=== PATIENT | female | born 2000 | race Two or more races ===

== ENCOUNTER → 2024-03-12 | Outpatient (REF) | payer OTHER | LOC: M PLALAB 09:03 | PROVIDERS: ATTEND Obstetrics & Gynecology | DX: Z34.91 Encounter for supervision of normal pregnancy, unspecified, first trimester (principal); Z53.9 Procedure and treatment not carried out, unspecified reason ==

== ENCOUNTER → 2024-03-20 | Outpatient (CLI) | payer OTHER ==
[2024-03-20 15:41] LABS: HEMATOCRIT 30.6 % (36.0-47.0); HEMOGLOBIN 10.6 g/dl (12.0-15.5); MEAN CORPUSCULAR HEMOGLOBIN 29.5 pg (27.0-33.0); MEAN CORPUSCULAR HGB CONC 34.6 g/dl (32.0-36.5); MEAN CORPUSCULAR VOLUME 85.2 fl (80.0-96.0); PLATELET COUNT, AUTOMATED 225 10^3/uL (150-450); RED BLOOD COUNT 3.59 10^6/uL (4.00-5.40); WHITE BLOOD COUNT 6.3 10^3/uL (4.0-10.0)
[2024-03-20 16:38] LABS: HIV 1&2 SCREEN NEGATIVE (NEGATIVE)
[2024-03-20 16:48] LABS: HEPATITIS C VIRUS ABY INDEX 2.25 INDEX (<0.8)
[2024-03-23 11:01] LABS: HCV RNA QUANTITATION <15 NOT DETECTED IU/mL (NOT DETECTED); HCV RNA log10 <1.18 NOT DETECTED Log IU/mL (NOT DETECTED)
== END ==
LOC: M PLALAB 13:44
PROVIDERS: ATTEND Obstetrics & Gynecology
DX: Z34.91 Encounter for supervision of normal pregnancy, unspecified, first trimester (principal)

== ENCOUNTER → 2024-03-21 | Outpatient (REF) | payer OTHER ==
[2024-03-21 15:06] LABS: GC DNA AMPLIFICATION NEGATIVE (NEGATIVE)
== END ==
LOC: M LAB REF 13:14
PROVIDERS: ATTEND Obstetrics & Gynecology
DX: Z34.91 Encounter for supervision of normal pregnancy, unspecified, first trimester (principal)

== ENCOUNTER → 2024-05-18 | Outpatient (CLI) | payer OTHER | LOC: M WHC 09:51 | PROVIDERS: ATTEND Obstetrics & Gynecology | DX: Z34.82 Encounter for supervision of other normal pregnancy, second trimester (principal); Z3A.19 19 weeks gestation of pregnancy ==

== ENCOUNTER 2024-06-25 15:16 | Outpatient (CLI) | payer OTHER ==
[~2024-06-25] VITALS: Ht 154.9 cm; Wt 57.1 kg
[2024-06-25] MEDS ORDERED: PRENTAB9 PO (15:30)
[2024-06-25 15:35] VITALS: BP 118/72
[2024-06-25 16:04] VITALS: BP 114/68
== END 2024-06-25 16:12 | disposition home or self-care (01) ==
LOC: M LDO 15:16
PROVIDERS: ATTEND Specialist
DX: O36.8120 Decreased fetal movements, second trimester, not applicable or unspecified (principal); Z3A.24 24 weeks gestation of pregnancy
CPT/HCPCS: 59025; 76815; G0463

== ENCOUNTER → 2024-07-06 | Outpatient (CLI) | payer OTHER ==
[~2024-07-06] MED LIST: PRENTAB9 PO
[2024-07-06 11:24] LABS: HEMATOCRIT 31.2 % (36.0-47.0); HEMOGLOBIN 10.4 g/dl (12.0-15.5); MEAN CORPUSCULAR HEMOGLOBIN 31.2 pg (27.0-33.0); MEAN CORPUSCULAR HGB CONC 33.3 g/dl (32.0-36.5); MEAN CORPUSCULAR VOLUME 93.7 fl (80.0-96.0); PLATELET COUNT, AUTOMATED 254 10^3/uL (150-450); RED BLOOD COUNT 3.33 10^6/uL (4.00-5.40); WHITE BLOOD COUNT 6.8 10^3/uL (4.0-10.0)
[2024-07-06 11:25] LABS: GLUCOSE CHALLENGE TEST 1 HOUR 117 MG/DL (LESS THAN 140)
[2024-07-06 12:02] LABS: HIV 1&2 SCREEN NEGATIVE (NEGATIVE)
[2024-07-06 12:11] LABS: HEPATITIS C VIRUS ABY INDEX 0.78 INDEX (<0.8)
[2024-07-06 12:42] LABS: GC DNA AMPLIFICATION NEGATIVE (NEGATIVE)
== END ==
LOC: M PLALAB 07:39
PROVIDERS: ATTEND Advanced Practice Midwife
DX: Z34.82 Encounter for supervision of other normal pregnancy, second trimester (principal)

== ENCOUNTER → 2024-09-14 | Outpatient (REF) | payer OTHER | LOC: M SFHCWAGY 09:49 | PROVIDERS: ATTEND Obstetrics & Gynecology | DX: Z36.89 Encounter for other specified antenatal screening (principal); Z3A.36 36 weeks gestation of pregnancy ==

== ENCOUNTER 2024-10-02 03:05 | Inpatient (IN) | payer OTHER ==
[~2024-10-02] VITALS: Ht 154.9 cm; Wt 66.8 kg
[2024-10-02] VITALS (57 sets, daily range): BP systolic 97–168; BP diastolic 52–115; TEMP 97.3–99.1; O2SAT 98–100
[2024-10-02] MEDS ORDERED: OXYTOCIN INJ 10UNITS/ML 1ML VIAL IM PRN (05:05)
[2024-10-02] MEDS ORDERED: CARBOPROST TROMETHAMINE 250 MCG/ML AMP IM PRN (05:05)
[2024-10-02] MEDS ORDERED: LIDOCAINE 1% MDV 20ML VIAL INFIL PRN (05:05)
[2024-10-02] MEDS ORDERED: TRANEXAMIC ACID INJection 1,000 MG in NS 100 ML IV PRN (05:05)
[2024-10-02] MEDS ORDERED: METHYLERGONOVINE MALEATE 0.2MG/ML 1ML VIAL IM PRN (05:05)
[2024-10-02] MEDS ORDERED: diphenhydrAMINE 50MG/ML VIAL IV PRN (05:35)
[2024-10-02] MEDS ORDERED: ONDANSETRON 4MG 2ML VIAL IV PRN (05:35)
[2024-10-02] MEDS ORDERED: ePHEDrine SULFATE 25 MG/5 ML(5MG/ML) SYRINGE IVP PRN (05:35)
[2024-10-02] MEDS ORDERED: LR 500 ML IV PRN (05:35)
[2024-10-02] MEDS ORDERED: NALOXONE INJ 0.4MG/1ML VIAL IV PRN (05:35)
[2024-10-02] MEDS ORDERED: EPIDURAL/PCA KEYS XX PRN (05:35)
[2024-10-02 05:44] LABS: HEMATOCRIT 29.3 % (36.0-47.0); HEMOGLOBIN 9.5 g/dl (12.0-15.5); MEAN CORPUSCULAR HEMOGLOBIN 28.3 pg (27.0-33.0); MEAN CORPUSCULAR HGB CONC 32.4 g/dl (32.0-36.5); MEAN CORPUSCULAR VOLUME 87.2 fl (80.0-96.0); PLATELET COUNT, AUTOMATED 253 10^3/uL (150-450); RED BLOOD COUNT 3.36 10^6/uL (4.00-5.40); WHITE BLOOD COUNT 7.5 10^3/uL (4.0-10.0)
[2024-10-02] MEDS: LACTATED RINGER'S 1000 ML IV STA (06:17)
[2024-10-02] MEDS: FENTANYL/ROPIVACAINE/NACL BAG 100 ML EPIDURAL SCH (06:17)
[2024-10-02] MEDS: LR 1,000 ML IV SCH (06:18)
[2024-10-02 06:34] LABS: HIV 1&2 SCREEN NEGATIVE (NEGATIVE)
[2024-10-02 06:41] LABS: HEPATITIS C VIRUS ABY INDEX 0.74 INDEX (<0.8)
[2024-10-02 16:12] LABS: CORD GAS ABE A -3.2; CORD GAS ABE V -1.8; CORD GAS HCO3 A 23.5 MMOL/L; CORD GAS HCO3 V 23.9 MMOL/L; CORD GAS O2 SAT A 52.7 %; CORD GAS O2 SAT V 81.3 %; CORD GAS PCO2 A 48.1 mmHg; CORD GAS PCO2 V 43.7 mmHg; CORD GAS PH A 7.307 UNITS; CORD GAS PH V 7.355 UNITS; CORD GAS PO2 A 23.8 mmHg; CORD GAS PO2 V 36.5 mmHg; CORD GAS SBC A 20.8 MMOL/L; CORD GAS SBC V 22.6 MMOL/L; CORD GAS TCO2 V 25.2 MMOL/L
[2024-10-02] MEDS ORDERED: RHOGAM 300MCG (1500IU) INJ IM SCH (16:15)
[2024-10-02] MEDS ORDERED: METHYLERGONOVINE MALEATE 0.2 MG TAB PO PRN (16:15)
[2024-10-02] MEDS: IBUPROFEN 800 MG TAB PO PRN (18:15)
[2024-10-02] MEDS: OXYTOCIN DRIP 30 UNITS in IV 1 EA IV PRN (18:15)
[2024-10-02] MEDS: diphenhydrAMINE 50MG CAP PO ONE (20:39)
[2024-10-02] MEDS: ACETAMINOPHEN 500 MG TAB PO ONE (20:39)
[2024-10-03] MEDS: DIBUCAINE 1% OINTMENT 30GM TOP PRN (01:11)
[2024-10-03 06:00] VITALS: BP 122/67; O2SAT 98
[2024-10-03 08:40] LABS: HEMATOCRIT 22.6 % (36.0-47.0); MEAN CORPUSCULAR HEMOGLOBIN 28.8 pg (27.0-33.0); MEAN CORPUSCULAR HGB CONC 32.7 g/dl (32.0-36.5); MEAN CORPUSCULAR VOLUME 87.9 fl (80.0-96.0); PLATELET COUNT, AUTOMATED 190 10^3/uL (150-450); RED BLOOD COUNT 2.57 10^6/uL (4.00-5.40); WHITE BLOOD COUNT 10.4 10^3/uL (4.0-10.0)
[2024-10-03 08:49] LABS: HEMOGLOBIN 7.4 g/dl (12.0-15.5)
[2024-10-03] MEDS: PRENATAL VITAMINS CHEWABLE TABLET PO SCH (09:23)
[2024-10-03] MEDS: ACETAMINOPHEN 500 MG TAB PO PRN (09:24)
[2024-10-03 18:00] VITALS: BP 121/64; O2SAT 99
[2024-10-03] MEDS: ANUSOL HC CREAM 30GM TOP PRN (18:28)
[2024-10-04 06:00] VITALS: BP 144/86; O2SAT 98
[2024-10-04] MEDS: DOCUSATE SODIUM 100MG CAPSULE PO PRN (08:36)
[2024-10-04] MEDS: MEASLES,MUMPS,RUBELLA VACCINE INJ (MMR-II) SC.IMMUN ONE (08:38)
[2024-10-04 18:00] VITALS: BP 133/73; O2SAT 96
[2024-10-05 06:00] VITALS: BP 119/69; O2SAT 98
== END 2024-10-05 15:45 | disposition home or self-care (01) | DRG 807 ==
LOC: M LDO 03:05 → M LDI 05:04 → M OBS 22:12
PROVIDERS: ADMIT Obstetrics & Gynecology; ATTEND Obstetrics & Gynecology
PROC: 10D07Z6 Extraction of Products of Conception, Vacuum, Via Natural or Artificial Opening (ICD-10-PCS; principal; 2024-10-02)
PROC: 0KQM0ZZ Repair Perineum Muscle, Open Approach (ICD-10-PCS; 2024-10-02)
PROC: 30233N1 Transfusion of Nonautologous Red Blood Cells into Peripheral Vein, Percutaneous Approach (ICD-10-PCS; 2024-10-02)
DX: O75.81 Maternal exhaustion complicating labor and delivery (principal); Z37.0 Single live birth; Z3A.39 39 weeks gestation of pregnancy; O70.1 Second degree perineal laceration during delivery; O72.1 Other immediate postpartum hemorrhage